=== PATIENT | female | born 1960 | race Caucasian/White ===

== ENCOUNTER 2025-09-06 15:16 | Emergency (ER) | payer OTHER ==
[~2025-09-06] VITALS: Ht 175.3 cm; Wt 70.3 kg
[2025-09-06 15:33] VITALS: BP 122/80
[2025-09-06 16:15] LABS: *BILIRUBIN,URIN NEGATIVE (NEGATIVE); *BLOOD, URINE 2+ (NEGATIVE); *CLARITY,URINE CLEAR (CLEAR); *COLOR,URINE YELLOW (YELLOW); *KETONES,URINE NEGATIVE (NEGATIVE); *PROTEIN,URINE NEGATIVE (NEGATIVE); *UROBILINOGEN,URINE 0.2 E.U./dl (NORMAL); LEUKOCYTE ESTERASE ,URINE NEGATIVE (NEGATIVE); NITRITE, URINE NEGATIVE (NEGATIVE); UGLUCOSE NEGATIVE (NEGATIVE)
[2025-09-06 16:29] LABS: SQUAMOUS EPITHELIAL CELL,UR FEW /HPF (NONE SEEN)
[2025-09-06 18:51] LABS: PLATELET COUNT (AUTO) 201 K/uL (179-408); RED BLOOD CELL COUNT(AUTO) 4.16 MIL/uL (3.63-4.92); RED CELL DISTRIBUTION WIDTH 13.0 % (12.3-17.7); WHITE BLOOD COUNT (AUTO) 5.8 K/uL (3.8-11.8)
[2025-09-06 19:04] LABS: CREATININE 0.6 mg/dL (0.6-1.3); SODIUM SERUM 143.0 mmol/L (136-145); UREA NITROGEN, BLOOD 14.0 mg/dL (7-18)
[2025-09-06 19:09] LABS: ASPARTATE AMINOTRANSFERASE 12.0 U/L (15-37); TOTAL PROTEIN, SERUM 7.5 g/dL (6.4-8.2)
[2025-09-06 19:15] VITALS: BP 119/77; O2SAT 97
== END 2025-09-06 19:16 | disposition home or self-care (01) ==
LOC: ER 15:26
DX: R31.9 Hematuria, unspecified (principal); N13.2 Hydronephrosis with renal and ureteral calculous obstruction; Z88.6 Allergy status to analgesic agent
CPT/HCPCS: 36415; 76770; 85025; 85730; 87086; A4606; A4663

== ENCOUNTER 2025-10-01 14:34 | Emergency (ER) | payer OTHER ==
[~2025-10-01] VITALS: Ht 175.3 cm; Wt 69.9 kg
[2025-10-01 14:40] VITALS: BP 116/77
[2025-10-01] MEDS ORDERED: AMOX-319 PO (15:39)
[2025-10-01 15:57] VITALS: BP 110/75; O2SAT 99
== END 2025-10-01 15:51 | disposition home or self-care (01) ==
LOC: ER 14:34
DX: S61.431A Puncture wound without foreign body of right hand, initial encounter (principal); W55.01XA Bitten by cat, initial encounter; Y93.89 Activity, other specified; Y92.89 Other specified places as the place of occurrence of the external cause; Y99.9 Unspecified external cause status
CPT/HCPCS: A4606; A4663

== ENCOUNTER 2025-10-08 18:07 | Emergency (ER) | payer OTHER ==
[~2025-10-08] VITALS: Ht 175.3 cm; Wt 69.9 kg
[~2025-10-08 18:07] MED LIST: AMOX-430 PO
[2025-10-08 18:10] VITALS: BP 122/82
[2025-10-08] MEDS: NEOMY/BACITRA/POLYMYXIN B OINT UD PACKET TP ONE (18:30)
[2025-10-08] MEDS ORDERED: NEOMY/BACITRA/POLYMYXIN B OINT UD PACKET TP ONE (18:31)
[2025-10-08 18:32] VITALS: BP 129/86; O2SAT 98
== END 2025-10-08 18:33 | disposition home or self-care (01) ==
LOC: ER 18:13
DX: S61.531A Puncture wound without foreign body of right wrist, initial encounter (principal); Z88.6 Allergy status to analgesic agent; W55.01XA Bitten by cat, initial encounter; Y93.89 Activity, other specified; Y92.89 Other specified places as the place of occurrence of the external cause; Y99.9 Unspecified external cause status
CPT/HCPCS: A4606; A4663

== ENCOUNTER 2025-11-04 18:45 | Emergency (ER) | payer OTHER ==
[~2025-11-04] VITALS: Ht 175.3 cm; Wt 70.3 kg
[~2025-11-04 18:45] MED LIST changes: +AMOX-319 PO; -AMOX-430 PO
[2025-11-04 18:53] VITALS: BP 147/80
[2025-11-04 20:25] LABS: PLATELET COUNT (AUTO) 206 K/uL (179-408); RED BLOOD CELL COUNT(AUTO) 4.19 MIL/uL (3.63-4.92); RED CELL DISTRIBUTION WIDTH 12.8 % (12.3-17.7); WHITE BLOOD COUNT (AUTO) 6.0 K/uL (3.8-11.8)
[2025-11-04 20:32] LABS: CREATININE 0.8 mg/dL (0.6-1.3); SODIUM SERUM 139 mmol/L (136-145); UREA NITROGEN, BLOOD 8 mg/dL (7-18)
[2025-11-04 20:38] LABS: ASPARTATE AMINOTRANSFERASE 23 U/L (15-37); TOTAL PROTEIN, SERUM 7.7 g/dL (6.4-8.2)
[2025-11-04] MEDS: ONDANSETRON 4 MG/2 ML VIAL IV ONE (21:00)
[2025-11-04] MEDS: IV NORMAL SALINE 1000 ML BAG IV ONE (21:00)
[2025-11-04 21:03] LABS: *BILIRUBIN,URIN NEGATIVE (NEGATIVE); *BLOOD, URINE 2+ (NEGATIVE); *CLARITY,URINE CLEAR (CLEAR); *COLOR,URINE YELLOW (YELLOW); *KETONES,URINE NEGATIVE (NEGATIVE); *PROTEIN,URINE NEGATIVE (NEGATIVE); *UROBILINOGEN,URINE 0.2 E.U./dl (NORMAL); LEUKOCYTE ESTERASE ,URINE NEGATIVE (NEGATIVE); NITRITE, URINE NEGATIVE (NEGATIVE); UGLUCOSE NEGATIVE (NEGATIVE)
[2025-11-04 21:28] LABS: SQUAMOUS EPITHELIAL CELL,UR NONE SEEN /HPF (NONE SEEN)
[2025-11-04] MEDS ORDERED: ACETAMINOPHEN 325 MG TABLET ONE (21:38)
[2025-11-04] MEDS: ACETAMINOPHEN 325 MG TABLET PO ONE (21:47)
[2025-11-04] MEDS ORDERED: LACT10SO68 PO (21:56)
[2025-11-04] MEDS ORDERED: CEFP200T14 PO (22:09)
[2025-11-04 22:22] VITALS: BP 139/78; O2SAT 98
== END 2025-11-04 22:23 | disposition home or self-care (01) ==
LOC: ER 18:53
DX: K59.00 Constipation, unspecified (principal); R10.9 Unspecified abdominal pain; R11.0 Nausea; R42 Dizziness and giddiness; R03.0 Elevated blood-pressure reading, without diagnosis of hypertension; Z85.51 Personal history of malignant neoplasm of bladder; Z88.6 Allergy status to analgesic agent
CPT/HCPCS: 99285; 96360; 80076; 80048; 81001; 83690; 85025; 84484; 36415; 74018; 93005; J7040; A4606; A4663